=== PATIENT | male | born 1955 | race Caucasian/White ===

== ENCOUNTER → 2016-10-06 | Outpatient (CLI) | payer OTHER ==
[~2016-10-06] MED LIST: ALBUTEROL17 GM INH; ALLOPURINOL300 MG PO; AMOXICILLIN PO; CEFTIN PO; CLEOCIN PO; DIVALPROEX SOD500 M1 PO; IBUPROFEN800 MG PO; IMBRUVICA140 MG PO; MELOXICAM7.5 MG PO; NITROSTAT0.4 MG SL; PHENERGAN25 M1 PO; POTASSIUM CHLO10 ME2 PO; PRAVACHOL20 MG PO; PREDNISONE PO; PROAIR HFA8.5 GM INH; VICODIN 5/1 TAB 5/50 PO; VICODIN 5/500 T1 TAB PO; ZANAFLEX2 M1 PO
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
--- NOTE | ~2016-10-06 | MR31 ---
[facility] A Service of [facility] & [facility] RADIOLOGY TEXT RESULTS PATIENT: JOIE BEE LOCATION: [facility] : 54 UNIT #: [id number] AGE: [address]: Bud Uriarte MD SEX: M ORDER DR: [id number] [facility] [address] [place] [address] [place], [place] [address] [id number] P MR#: [id number] Acc #: [id number] NAME: JOIE BEE : 1955 SEX: M STUDY DATE/TIME: 10/06/2016 19:48 UNIT: [facility] ROOM: STUDY DESCRIPTION: MR Cervical WWo Contrast Attending Physician: Bud Uriarte M.D. Ordering Physician: Bud Uriarte M.D. Primary Care Physician: Bud Uriarte M.D. MRI CENTER REPORT This report is preliminary unless electronic signature is present. EXAM Cervical spine MRI without and with contrast, 10/06/2016. HISTORY Cervical pain and radiculopathy. Cervical radiculopathy into right arm. Constant pain. History of lymphocytic leukemia in 2014. Lumbar spine surgery in 2001. Chemotherapy 05/14 to 10/15 COMMENT MRI of the cervical spine was performed prior to and following intravenous administration of 16 mL of MultiHance. There is no prior imaging of the cervical spine. Sagittal alignment is normal. Bone marrow signal intensity is diffusely cellular, and I suspect this is related to patient's known myeloproliferative disorder. Please correlate further with clinical status of his lymphocytic leukemia. Please correlate for clinical evidence of anemia. Discrete osseous lesions are not identified. The intervertebral discs are mildly desiccated in general with mild loss of height at C5-C6 and C6-C7. The cervical cord is normal in size, and there is no reproducible cord signal abnormality. Following contrast administration, there is no pathologic cord enhancement. There is extensive lymphadenopathy in the neck and the visualized upper chest, likely due to known lymphocytic leukemia. Large left jugular chain node is about 2.8 cm in diameter, and the largest supraclavicular node on the right is 2.6 cm in diameter. At C2-C3, mild facet degenerative change bilaterally. No canal or foraminal impingement. At C3-C4, mild bilateral facet degenerative change. Mild broad-based STS. [facility] A Service of [facility] & [facility] RADIOLOGY TEXT RESULTS PATIENT: JOIE BEE LOCATION: [facility] : 54 UNIT #: [id number] AGE: [address]: Bud Uriarte MD SEX: M ORDER DR: posterior disc protrusion. Mild flattening of the anterior cord and very mild canal stenosis. No foraminal impingement. At C4-C5, there is mild facet degenerative change bilaterally. There is a tiny central disc protrusion. Annular fissure, mild flattening of the cord, and mild canal stenosis. Also mild left and cfux-ll-ceyyhllj right-sided foraminal narrowing. At C5-C6, there is a mild concentric disc bulge with superimposed right paramedian extrusion with the extruded disc material extending caudad from the disc level remaining contiguous with it and lying posterior to the upper half of C6. The extrusion measures about 1.3 cm SI dimension, 0.5 cm AP dimension, 0.80 cm ML dimension. There is gsjq-jv-rrbhvzec right-sided cord flattening and canal stenosis. There is uncovertebral osteophyte formation bilaterally with severe right greater than left side foraminal narrowing. At C6-C7, mild concentric disc bulge and endplate spondylosis and mild bilateral facet degenerative change. There is mild effacement of the anterior cord and very mild canal stenosis. Mild right and moderate left-side foraminal narrowing. At C7-T1, there is mild facet degenerative change on the left. No canal or foraminal impingement. IMPRESSION 1. This patient has extensive lymphadenopathy in the neck and visualized upper chest, probably a manifestation of known lymphocytic leukemia. Additionally marrow signal intensity is diffusely abnormal, probably related to myeloproliferative disorder, possibly related to associated anemia. Please correlate further clinically. 2. There is multilevel cervical degenerative change with the most significant finding radiographically likely at C5-C6, where there is a right paramedian extrusion with predominant right- sided cord flattening and canal stenosis. There is also severe foraminal narrowing at the C5-C6 level. Please refer to the sykkg-gt-nntro discussion of degenerative disease. Correlate with radicular symptoms. Cord signal intensity is still normal. There is no pathologic cord enhancement. Dictated by... Shani Tinoco M.D. THIS IS AN ELECTRONICALLY VERIFIED REPORT Shani Tinoco M.D. at 10/08/2016 11:12 AM MARION/heron TD: 10/07/2016 19:11 [facility]. [facility] A Service of [facility] RADIOLOGY TEXT RESULTS PATIENT: JOIE BEE [facility] UNIT #: [id number] AGE: [address]: Bud Uriarte MD SEX: M ORDER DR: RAAD #: [id number] MRI CENTER REPORT COPY
[2016-10-06 20:00] LABS: POC - CREATININE 1.17 mg/dL (0.64-1.27); POC - GFR >60.0 mL/min (>60)
== END | disposition home or self-care (01) ==
LOC: CMRI 11:31
PROVIDERS: Family Medicine
DX: M54.12 Radiculopathy, cervical region (principal); M54.16 Radiculopathy, lumbar region; R59.1 Generalized enlarged lymph nodes; M47.812 Spondylosis without myelopathy or radiculopathy, cervical region; M50.122 Cervical disc disorder at C5-C6 level with radiculopathy; M48.02 Spinal stenosis, cervical region; M51.16 Intervertebral disc disorders with radiculopathy, lumbar region; M48.06 Spinal stenosis, lumbar region
CPT/HCPCS: 72156; 72158; 82565; A9577

== ENCOUNTER → 2016-11-04 | Outpatient (CLI) | payer OTHER ==
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
== END | disposition home or self-care (01) ==
LOC: CMRI 09:45
DX: M54.14 Radiculopathy, thoracic region (principal); M51.14 Intervertebral disc disorders with radiculopathy, thoracic region; M47.24 Other spondylosis with radiculopathy, thoracic region; M48.04 Spinal stenosis, thoracic region; R59.0 Localized enlarged lymph nodes; Z85.6 Personal history of leukemia; Z98.890 Other specified postprocedural states
CPT/HCPCS: 72157; A9577

== ENCOUNTER 2016-12-19 21:45 | Emergency (ER) | payer OTHER ==
--- NOTE | ~2016-12-19 | CT99 ---
[facility] A Service of [facility] RADIOLOGY TEXT RESULTS PATIENT: JOIE BEE LOCATION: [facility] : 54 UNIT #: [id number] AGE: [address]: Yury Pearce MD SEX: M ORDER DR: [id number] [place] [id number] [facility] [place], [place] [address] [id number] MR#: [id number] Acc #: [id number] NAME: JOIE BEE : 1955 SEX: M STUDY DATE/TIME: 12/20/2016 0:21 UNIT: [facility] ROOM: STUDY DESCRIPTION: CT Maxillofacial Area W Cont Attending Physician: Yury Pearce M.D. Ordering Physician: Yury Pearce M.D. Primary Care Physician: Bud Uriarte M.D. MEDICAL IMAGING REPORT This report is preliminary unless electronic signature is present EXAM Facial CT examination with contrast 12/20/2016 HISTORY 61-year-old male in the ED complaining of 4 day history of left periorbital soft tissue swelling, redness and eye drainage. Fever. TECHNIQUE Facial CT examination was performed with IV contrast enhancement including the orbits, maxillofacial skull and mandible. Multiplanar reconstructed images. This CT exam was performed with one or more of the following radiation dose reduction techniques: automatic control, adjustment of mA and/or kV according to patient size, and iterative reconstruction. FINDINGS There was moderate enlargement of the left lacrimal gland within the anterolateral left orbit, the gland shows increased tissue enhancement. There was also extensive subcutaneous soft tissue swelling overlying the left orbit. The finding suggests likely acute inflammation or infection involving the left lacrimal gland. No abscess or other fluid collection is identified. The intraorbital soft tissues are otherwise normal in appearance. No extraocular muscle enlargement or abscess. Extensive mucosal thickening throughout the frontal, ethmoid, maxillary and sphenoid sinuses bilaterally. IMPRESSION 1. Moderate enlargement of the left lacrimal gland within the anterolateral left orbit which shows increased soft tissue enhancement. Extensive subcutaneous soft tissue swelling overlying [facility] A Service of [facility] RADIOLOGY TEXT RESULTS PATIENT: JOIE BEE LOCATION: [facility] : 54 UNIT #: [id number] AGE: [address]: Yury Pearce MD SEX: M ORDER DR: the left orbit. The findings suggest acute infection or inflammation involving the left lacrimal gland with preorbital cellulitis. No abscess or other fluid collection is seen within or adjacent to the left orbit. Left orbital contents are otherwise unremarkable. Lacrimal neoplasm is less likely, clinical follow-up is recommended. 2. Extensive mucosal thickening throughout the paranasal sinuses bilaterally. Dictated by... Jamil Aguilar M.D. THIS IS AN ELECTRONICALLY VERIFIED REPORT Jamil Aguilar M.D. at 12/20/2016 9:51 PM SARMAD/marcus TD: 12/20/2016 01:22 JOB #: [id number] MEDICAL IMAGING REPORT Page 1 of 1 COPY
[2016-12-19 21:41] LABS: BASOPHIL# 0.1 X10e3 (0-0.3); BASOPHIL% 0.1 % (0-2.5); EOSINOPHIL# 0.1 X10e3 (0-0.7); EOSINOPHIL% 0.1 % (0.0-7.0); HEMATOCRIT 41.6 % (38.0-50.0); HEMOGLOBIN 13.7 gm/dL (13.0-16.0); LYMPHOCYTE# 59.9 X10e3 (1.0-3.5); LYMPHOCYTE% 89.3 % (17.0-45.0); MEAN CELL VOLUME 92.9 FL (83-96); MEAN CORPUSCULAR HEMOGLOBIN 30.6 PG (28-34); MEAN CORPUSCULAR HGB CONC 32.9 g/dL (30-36); MEAN PLATELET VOLUME 8.8 FL (6.5-11.5); MONOCYTE# 2.2 X10e3 (0-1.0); MONOCYTE% 3.3 % (3.0-12.0); NEUTROPHIL# 4.9 X10e3 (1.5-7.1); NEUTROPHIL% 7.2 % (40-75); RED BLOOD COUNT 4.48 X10e (3.90-5.60); RED CELL DISTRIBUTION WIDTH 15.1 % (11.0-15.5)
[~2016-12-19 21:45] MED LIST changes: -ALBUTEROL17 GM INH; -ALLOPURINOL300 MG PO; -CEFTIN PO; -DIVALPROEX SOD500 M1 PO; -IMBRUVICA140 MG PO; -MELOXICAM7.5 MG PO; -PHENERGAN25 M1 PO; -POTASSIUM CHLO10 ME2 PO; -PRAVACHOL20 MG PO; -PREDNISONE PO; -PROAIR HFA8.5 GM INH; -ZANAFLEX2 M1 PO
[2016-12-19 21:56] LABS: DIFF IND YES; PLATELET COUNT 83 X10e3 (140-420); WHITE BLOOD COUNT 67.1 X10e3 (4.0-10.5)
[2016-12-19 22:00] LABS: PLATELET ESTIMATE DECREASED (NORMAL)
[2016-12-19 22:02] LABS: ANISOCYTOSIS MOD; DIFFERENTIAL COMMENT MOD.ATY.LYMPS
[2016-12-19 22:44] LABS: BILIRUBIN,TOTAL 0.8 mg/dL (0.2-2.0); CALCIUM SERUM 8.8 mg/dL (8.4-10.2); CREATININE SERUM 1.1 mg/dL (0.6-1.4); GLOM FILT RATE Estimated 71.6 mL/min (>60); POTASSIUM 4.4 mmol/L (3.5-5.1); PROTEIN TOTAL SERUM 6.8 g/dL (6.0-8.3)
[2016-12-19] MEDS ORDERED: MELOXICAM7.5 MG PO (23:37)
[2016-12-19] MEDS ORDERED: ALLOPURINOL300 MG PO (23:38)
[2016-12-19] MEDS ORDERED: DIVALPROEX SOD500 M1 PO (23:38)
[2016-12-19] MEDS ORDERED: POTASSIUM CHLO10 ME2 PO (23:38)
[2016-12-19] MEDS ORDERED: PRAVACHOL20 MG PO (23:38)
[2016-12-19] MEDS ORDERED: ZANAFLEX2 M1 PO (23:40)
[2016-12-19] MEDS ORDERED: IMBRUVICA140 MG PO (23:41)
[2016-12-19] MEDS ORDERED: PHENERGAN25 M1 PO (23:41)
== END 2016-12-20 02:30 | disposition home or self-care (01) ==
LOC: CED 21:45
PROVIDERS: Emergency Medicine
DX: L03.213 Periorbital cellulitis (principal); Z79.899 Other long term (current) drug therapy
CPT/HCPCS: 36415; 70487; 80053; 85025; 87040; 96365; 96375; 99284; J0696; J2270; J2405; J3370; Q9967

== ENCOUNTER → 2017-01-04 | Outpatient (CLI) | payer OTHER ==
[~2017-01-04] MED LIST changes: +ALBUTEROL17 GM INH; +ALLOPURINOL300 MG PO; +CEFTIN PO; +DIVALPROEX SOD500 M1 PO; +IMBRUVICA140 MG PO; +MELOXICAM7.5 MG PO; +PHENERGAN25 M1 PO; +POTASSIUM CHLO10 ME2 PO; +PRAVACHOL20 MG PO; +PREDNISONE PO; +PROAIR HFA8.5 GM INH; +ZANAFLEX2 M1 PO
--- NOTE | ~2017-01-04 | CT2 ---
[facility] A Service of [facility] & [facility] RADIOLOGY TEXT RESULTS PATIENT: JOIE BEE [facility] UNIT #: [id number] AGE: [address]: Ortiz Contreras MD SEX: M ORDER DR: [id number] [place] [id number] [facility] [place], [place] [address] [id number] O MR#: [id number] Acc #: [id number] NAME: JOIE BEE : 1955 SEX: M STUDY DATE/TIME: 01/04/2017 14:20 [facility] ROOM: STUDY DESCRIPTION: CT Abd and Pelv W Cont Attending Physician: Ortiz Contreras M.D. Referring Physician: Ortiz Contreras M.D. Ordering Physician: Ortiz Contreras M.D. Primary Care Physician: Bud Uriarte M.D. MEDICAL IMAGING REPORT This report is preliminary unless electronic signature is present EXAM CT abdomen and pelvis with contrast INDICATIONS Lymphadenopathy and leukocytosis diagnosed 2 years ago. Leukemia. Restaging. Observation for disease progression. PROCEDURE Contrast-enhanced CT of the abdomen and pelvis. 100 mL of Isovue-370. This CT exam was performed with one or more of the following radiation dose reduction techniques: Automatic exposure control, adjustment of mA and/or kV according to patient size, and iterative reconstruction. COMPARISON None FINDINGS Refer to the separately dictated chest CT for thoracic findings. ABDOMEN WITH CONTRAST: Cirrhotic morphology of the liver. No liver mass on this single-phase study. The spleen measures 16.9 cm in length. No significant ascites. There is a 3.1-cm cyst in the upper pole of the right kidney. The adrenal glands, pancreas, gallbladder unremarkable. Bowel loops are nondilated. There is diffuse abdominal adenopathy. Index portacaval node measures up to 4.3 cm. A mesenteric jai conglomerate measures approximately 9.3 x 6.1 cm and a right paraaortic conglomerate measures 4.7 x 4.1 cm. PELVIS WITH CONTRAST: Right external iliac node measures up to 2.6 cm. No pelvic fluid. No aggressive appearing bone lesion. [facility] A Service of [facility] & [facility] RADIOLOGY TEXT RESULTS PATIENT: JOIE BEE LOCATION: [facility] : 54 UNIT #: [id number] AGE: [address]: Ortiz Contreras MD SEX: M ORDER DR: IMPRESSION 1. Diffuse lymphadenopathy, greater in the abdomen than the pelvis. 2. Cirrhosis. Splenomegaly. No liver mass seen on this single-phase study. 3. Refer to the separately dictated chest CT for thoracic findings. Dictated by... Jon Jiménez M.D. THIS IS AN ELECTRONICALLY VERIFIED REPORT Jon Jiménez M.D. at 01/07/2017 7:04 AM RONEY/yissel TD: 01/04/2017 17:17 JOB #: [id number] MEDICAL IMAGING REPORT Page 1 of 1 COPY
--- NOTE | ~2017-01-04 | CT55 ---
[facility] A Service of [facility] RADIOLOGY TEXT RESULTS PATIENT: JOIE BEE LOCATION: [facility] : 53 UNIT #: [id number] AGE: [address]: Ortiz Contreras MD SEX: M ORDER DR: [id number] [id number] [place], [place] [address] [id number] O MR#: [id number] Acc #: [id number] NAME: JOIE BEE. : 1955 SEX: M STUDY DATE/TIME: 01/04/2017 14:20 UNIT: [facility] ROOM: STUDY DESCRIPTION: CT Chest W Con Attending Physician: Ortiz Contreras M.D. Referring Physician: Ortiz Contreras M.D. Ordering Physician: Ortiz Contreras M.D. Primary Care Physician: Bud Uriarte M.D. MEDICAL IMAGING REPORT This report is preliminary unless electronic signature is present EXAM CT chest with contrast. INDICATION Lymphadenopathy. Leukocytosis. Leukemia diagnosed 2 years ago. Observation for disease progression. Patient reports cough for the past 6 months. PROCEDURE Contrast-enhanced CT of the chest. 100 mL of Isovue-370. This CT exam was performed with one or more of the following radiation dose reduction techniques: automatic exposure control, adjustment of mA and/or kV according to patient size, and iterative reconstruction. COMPARISON STUDIES None FINDINGS No suspicious pulmonary nodule. There is diffuse mediastinal adenopathy. A right paratracheal node conglomerate measures up to 4.1 cm. A right lower paraesophageal node measures up 2.4 cm. No aggressive appearing bone lesion. IMPRESSION 1. Diffuse mediastinal adenopathy with index measurements above. 2. No acute findings. Dictated by... Jon Jiménez M.D. [facility] A Service of [facility] & [facility] RADIOLOGY TEXT RESULTS PATIENT: JOIE BEE LOCATION: [facility] : 53 UNIT #: [id number] AGE: [address]: Ortiz Contreras MD SEX: M ORDER DR: THIS IS AN ELECTRONICALLY VERIFIED REPORT Jon Jiménez M.D. at 01/07/2017 7:04 AM RONEY/anna TD: 01/04/2017 17:20 JOB #: [id number] MEDICAL IMAGING REPORT Page 1 of 1 COPY
== END | disposition home or self-care (01) ==
LOC: CCAT 13:16
DX: C91.10 Chronic lymphocytic leukemia of B-cell type not having achieved remission (principal); R59.1 Generalized enlarged lymph nodes; D72.828 Other elevated white blood cell count; D75.1 Secondary polycythemia; K74.60 Unspecified cirrhosis of liver; R16.1 Splenomegaly, not elsewhere classified
CPT/HCPCS: 71260; 74177; J1642; Q9967

== ENCOUNTER 2017-03-01 13:45 | Inpatient (IN) | payer OTHER ==
--- NOTE | ~2017-03-01 | EKG ---
PATIENT: JOIE BEE UNIT #: [id number] Ventricular Rate: 111 BPM Atrial Rate: 111 BPM P-R Interval: 132 ms QRS Duration: 92 ms Q-T Interval: 310 ms QTC Calculation(Bezet): 421 ms P Barnhill: -12 degrees Calculated R Barnhill: -50 degrees Calculated T Barnhill: 36 degrees Diagnosis Line: Sinus tachycardia with occasional Premature Diagnosis Line: ventricular complexes Diagnosis Line: Incomplete right bundle branch block Diagnosis Line: Left anterior fascicular block Diagnosis Line: Abnormal ECG Diagnosis Line: When compared with ECG of 21-FEB-2016 05:11, Diagnosis Line: Premature ventricular complexes are now Present Diagnosis Line: T wave amplitude has increased in Lateral leads Diagnosis Line: Confirmed by KENDRICK RODRIGUEZ MD ([id number]) on 03/02/2017 Diagnosis Line: 3:28:26 PM INTERPRETING MD: MICHAEL DAWSON
--- NOTE | ~2017-03-01 | CR72 ---
[facility] A Service of [facility] RADIOLOGY TEXT RESULTS PATIENT: JOIE BEE LOCATION: [facility] 316- : 54 UNIT #: [id number] AGE: [address]: Regulo Jolly MD SEX: M ORDER DR: [id number] [facility] [address] [facility] [address]. [place], [place] [address] [id number] I MR#: [id number] Acc #: [id number] NAME: JOIE BEE : 1955 SEX: M STUDY DATE/TIME: 03/02/2017 7:50 UNIT: [address] ROOM: [facility] STUDY DESCRIPTION: CR Chest Single View Portable Attending Physician: Regulo Jolly M.D. Ordering Physician: Regulo Jolly M.D. Primary Care Physician: Bud Uriarte M.D. MEDICAL IMAGING REPORT This report is preliminary unless electronic signature is present EXAM Portable chest. HISTORY Chest pain, shortness of air x1 day. COMPARISON 03/01/2017 FINDINGS Portable view of the chest demonstrates continued right basilar volume loss and parenchymal opacity which may represent a combination of atelectasis, infiltrate or possibly small right effusion. The left lung remains clear. Indwelling venous access port overlies the right chest, distal tip near the lower SVC. Mild cardiomegaly and aortic atherosclerotic change. No pneumothorax. Dictated by... Jean Hdz M.D. THIS IS AN ELECTRONICALLY VERIFIED REPORT Jean Hdz M.D. at 03/03/2017 12:29 PM Jyotsna TD: 03/02/2017 22:17 JOB #: [id number] MEDICAL IMAGING REPORT Page 1 of 1 COPY
--- NOTE | ~2017-03-01 | DS ---
Unit #: [id number] #: [id number] Patient: JOIE BEE [id number] [address] [address] [id number] I MR#: [id number] NAME: JOIE BEE ROOM: 316 Age: 61 Sex: M Admission Date: 03/01/2017 : 1955 Discharge Date: 03/04/2017 Attending Physician: Regulo Jolly M.D. Primary Care Physician: Bud Uriarte M.D. DISCHARGE SUMMARY DISCHARGE DIAGNOSES 1. Pneumococcal pneumonia with bacteremia. 2. Tobacco use, suspect underlying COPD. 3. Chronic lymphocytic leukemia. 4. Hypokalemia, replaced. 5. Hypophosphatemia, replaced. 6. Scant hemoptysis, most likely secondary to pneumonia. DISCHARGE MEDICATIONS 1. Ceftin 500 mg b.i.d. for 5 more days. 2. Prednisone 40 mg a day for 5 days. 3. ProAir 2 puffs q.i.d. p.r.n. 4. Imbruvica 140 mg tablets a day or as per Dr. Contreras. FOLLOW-UP 1. Follow up in our office in 2 weeks with our nurse practitioner; arrange PFTs. 2. Follow up with Dr. Jolly in 6-8 weeks with chest x-ray in the office. 3. Follow up with Dr. Contreras for CLL as scheduled. 4. Follow up with Dr. Uriarte in 2 weeks for general medical care. DISCHARGE DIET As tolerated. ACTIVITIES No specific restrictions, although no smoking has been suggested. DESCRIPTION OF HOSPITALIZATION The patient was admitted through the emergency room with fever, mucopurulent sputum and scant hemoptysis. He had a CT scan PE protocol with no PE but had evidence of right lower lobe pneumonia. He did have evidence of adenopathy, both on his CT scan chest and abdomen, likely related to his CLL. He had significant pleuritic pain, which was unresponsive initially to narcotics. He actually improved dramatically with 2 doses of Toradol and steroids. He had no further hemoptysis. He improved daily. On the day of discharge he was asking for discharge. He was ambulating in the linda without oxygen. He will be given an albuterol inhaler, but at this time we will hold off on chronic daily controlling medications. He will be seen in the office and get PFTs, and we will consider addition of controlling agents if needed. Certainly, no smoking is of great benefit, and this has been discussed. We will consider repeat CAT scan in 8-10 weeks to make sure that this area resolves, particularly given his hemoptysis. Certainly, if he has any further hemoptysis, he will need bronchoscopy. Unit #: [id number] #: [id number] Patient: JOIE BEE Dictated by... Gary Shin/sandra TD: 03/04/2017 12:30 JOB #: [id number] DISCHARGE SUMMARY Page 1 of 1 X Regulo Jolly MD X DISCHARGE SUMMARY
--- NOTE | ~2017-03-01 | CT16 ---
[facility] A Service of [facility] RADIOLOGY TEXT RESULTS PATIENT: JOIE BEE LOCATION: [facility] 316-01 : 54 UNIT #: [id number] AGE: [address]: Regulo Jolly MD SEX: M ORDER DR: [id number] [facility] [address]. [place], [place] [address] [id number] I MR#: [id number] #: [id number] NAME: JOIE BEE : 1955 SEX: M STUDY DATE/TIME: 03/01/2017 15:25 UNIT: [facility] ROOM: [facility] STUDY DESCRIPTION: CT Angio Chest for PE Attending Physician: Regulo Jolly M.D. Ordering Physician: Trent Plascencia M.D. Primary Care Physician: Bud Uriarte M.D. MEDICAL IMAGING REPORT This report is preliminary unless electronic signature is present EXAM CT angiogram chest. INDICATIONS Chest pain for 2 hours. This is located on the right. Patient also has had some right-sided abdominal pain. TECHNIQUE Axial CT images were obtained from the thoracic inlet through the dome of the diaphragm following administration of intravenous contrast material. Following this 3-D reformatted images were obtained. Patient does have a history of mediastinal adenopathy. This CT exam was performed with one or more of the following radiation dose reduction techniques: automatic exposure control, adjustment of mA and/or kV according to patient size, and iterative reconstruction. FINDINGS This patient has dense consolidation identified within the right lower lobe. Its appearance is most in keeping with pneumonia. It is new when compared to the exam from January 04, 2017. No acute pulmonary thromboembolus is seen. Thoracic aorta measures within normal size limits. There is no evidence of dissection. This patient does have extensive mediastinal and hilar adenopathy which I think has worsened when compared to the prior study. Upper right paratracheal node now measures up to 1.9 cm in short-axis dimensions previously measured 1.1 cm, lower right paratracheal node measures about 4 cm. This is unchanged when compared to prior examination, but a right hilar node now measures up to 2.5 x 1.9 cm, previously 2.0 x 1.9 cm. There is also periaortic adenopathy and additional enlarged nodes within the anterior mediastinum. Patient's CT of the abdomen and pelvis will be dictated separately. Patient does have cirrhosis and evidence of portal hypertension and there is splenomegaly. Patient is noted to have left basilar atelectasis. The thyroid gland, [facility] A Service of [facility] RADIOLOGY TEXT RESULTS PATIENT: JOIE BEE LOCATION: [facility] 316-01 : 53 UNIT #: [id number] AGE: [address]: Regulo Jolly MD SEX: M ORDER DR: trachea and esophagus appear unremarkable. Patient has a right internal jugular vein MediPort which extends into the right atrium. No aggressive osseous abnormalities are seen. IMPRESSION 1. Dense infiltrate is seen within the right lower lobe favored to represent pneumonia. There is probably also, a trace pleural fluid in this area as well. 2. No acute pulmonary thromboembolus seen. Thoracic aorta is normal in caliber and no dissection. 3. Extensive mediastinal and hilar adenopathy which I think is actually progressed when compared to the exam from December of this year. Correlation with this patient's history is recommended. Please see the body of the report for any other additional incidental findings and please refer to the separately dictated report for findings within the abdomen and pelvis. Dictated by... Alondra Mckinney M.D. THIS IS AN ELECTRONICALLY VERIFIED REPORT Alondra Mckinney M.D. at 03/04/2017 8:10 AM SANTIAGO/yordan TD: 03/02/2017 09:33 JOB #: [id number] MEDICAL IMAGING REPORT Page 1 of 1 COPY
--- NOTE | ~2017-03-01 | HP ---
Unit #: [id number] #: [id number] Patient: JOIE BEE [id number] [address] [place], [place] [address] [id number] I MR#: [id number] NAME: JOIE BEE ROOM: [facility] Age: 61 Sex: M Admission Date: 03/01/2017 : 1955 Attending Physician: Regulo Jolly M.D. Primary Care Physician: Bud Uriarte M.D. HISTORY AND PHYSICAL CHIEF COMPLAINT Pain. HISTORY OF PRESENT ILLNESS A 61-year-old gentleman with CLL followed by Dr. Contreras, currently on Imbruvica. He has had a one and a half to two day history of fever, mucopurulent sputum, scant hemoptysis and fairly severe pleuritic pain. It is on the right side. In the emergency room, he received a variety of scans including a CT PE protocol which was negative for PE. His abdominal CT was unremarkable for acute pathology. There was scattered adenopathy consistent with his diagnosis of CLL. He is in the intensive care unit. He had a borderline low blood pressure. Sepsis protocol was initiated and criteria was fulfilled. He is hungry, asking for food. He is awake and alert, in no distress on low flow oxygen. His major complaint is just pleuritic pain. PAST MEDICAL HISTORY Remarkable for his CLL. He denies lung disease, diabetes, hypertension or heart disease. When I asked him if he ever had a heart attack, he said yes. He had a cardiac catheterization in the past which was negative and he is not followed by a relationship management lead. SOCIAL HISTORY He does smoke he states a pack a week. He does not drink alcohol. He denies recreational drug use but the nursing staff tells me that there is some history of drug use and that he may have been found with drug paraphernalia but that cannot be confirmed. FAMILY HISTORY No familial lung disease. ALLERGIES No known medical allergies. MEDICATIONS AT HOME Only this Imbruvica. He was on no other medications. REVIEW OF SYSTEMS He denies palpitations, anginal chest pain, melena, hematochezia, hematuria, dysuria, nausea, vomiting, leg pain, swelling, focal weakness, paraesthesias. He did have fever. He said it was around 102. He has had no further hemoptysis. Unit #: [id number] #: [id number] Patient: JOIE BEE PHYSICAL EXAMINATION VITAL SIGNS: Reveals a gentleman who had a T-Max of 101.2. He now is afebrile. Pulse 55. Respiratory rate 16. Blood pressure 91/58. Height 5'8". Weight 145 lb. HEENT: Pupils equal, round and reactive to light. Sclerae anicteric. Head: Atraumatic. Mucous membranes were moist. He has a few natural teeth. They are in very poor dentition. NECK: Supple. No supraclavicular or cervical adenopathy appreciated. CHEST: Egophony right lower lobe. Decreased breath sounds. No wheeze or stridor. Some scattered rhonchi. CARDIAC: Distant heart tones. Regular rate and rhythm. No pathologic murmur, rub or gallop. ABDOMEN: Soft, nontender. No hepatomegaly or rebound. EXTREMITIES: No clubbing, cyanosis or edema. No calf tenderness. SKIN: Warm and dry without rash or diaphoresis. NEUROLOGIC: Grossly intact. No focal muscle or sensory deficits. DIAGNOSTIC STUDIES LABORATORY: BUN 19, creatinine 0.9, potassium 3.0. Lactic acid 2.2, repeat 2.2. INR normal. Cardiac enzymes normal. WBC count 121,000, now 70,000. Hemoglobin 9.4, platelet count 108. Urinalysis: Hematuria. Blood cultures, both sets, growing gram-positive cocci in pairs and chains. IMAGING: Chest x-ray right lower lobe infiltrate. He now has a little bit of effusion on that side but very small. CT: No PE and pneumonia. CT of his abdomen: Formal report is pending but apparently no acute changes and lymphadenopathy was somewhat better. CARDIOVASCULAR: EKG shows no definite acute ischemic changes. IMPRESSION 1. Septic shock with a low blood pressure of 88 and received appropriate IV fluids, antibiotics and has met sepsis criteria and protocol. 2. Pneumonia, community acquired, however, in immunosuppressed individual. 3. CLL. 4. Pleuritic pain secondary to pneumonia. 5. Scant hemoptysis secondary to pneumonia. 6. Tobacco. 7. Vague history of possible DE in the past. PLAN IV antibiotics, obviously adjust as cultures become positive, pain control, steroids for severe pneumonia, nebulized bronchodilators. We will hold off on his chemotherapy until his thrombocytopenia and pneumonia are better. His potassium will be replaced. Urine tox screen will be performed. If stable, can likely move out of the ICU later today. Dictated by Gary Shin TD: 03/02/2017 09:21 JOB #: [id number] Unit #: [id number] #: [id number] Patient: VALERIELACHOJOIE L HISTORY AND PHYSICAL Page 1 of 1 X Regulo Jolly MD HISTORY AND PHYSICAL
--- NOTE | ~2017-03-01 | CT2 ---
[facility] A Service of [facility] RADIOLOGY TEXT RESULTS PATIENT: JOIE BEE LOCATION: [facility] 316-01 : 54 UNIT #: [id number] AGE: [address]: Regulo Jolly MD SEX: M ORDER DR: [id number] [facility] [address] [facility]. [place], [place] [address] [id number] I MR#: [id number] Acc #: [id number] NAME: JOIE BEE : 1955 SEX: M STUDY DATE/TIME: 03/01/2017 15:25 UNIT: [facility] ROOM: [facility] STUDY DESCRIPTION: CT Abd and Pelv W Cont Attending Physician: Regulo Jolly M.D. Ordering Physician: Trent Plascencia M.D. Primary Care Physician: Bud Uriarte M.D. MEDICAL IMAGING REPORT This report is preliminary unless electronic signature is present EXAM CT abdomen and pelvis with IV contrast. HISTORY Right-side abdomen pain today and chest pain. TECHNIQUE CT abdomen and pelvis was performed with IV contrast. This CT exam was performed with one or more of the following radiation dose reduction techniques: automatic exposure control, adjustment of mA and/or kV according to patient size, and iterative reconstruction. FINDINGS CT ABDOMEN: Dense consolidation or atelectasis in the posterior right lung base into the lower lobe. Morphologic changes of cirrhosis with nodular hepatic contour, and splenomegaly measuring 17.3 cm in length. No hepatic mass. No biliary ductal dilatation. The pancreas, left kidney, and adrenal glands are normal. 3.2 cm cyst in the upper pole of the right kidney. Left periaortic adenopathy superior to the left renal hilum measures 4.4 cm x 2.1 cm, previously 4.7 cm x 2.2 cm. Portocaval adenopathy measures 3.9 cm x 1.9 cm, previously 4.3 cm x 2.5 cm. Addi mass in the right mid abdominal mesentery measures 2.9 cm x 7.5 cm, previously 6.1 cm x 9.3 cm. Additional peripancreatic, left periaortic, and aortocaval adenopathy has decreased slightly since the prior CT as well. Mild ectasia of the infrarenal abdominal aorta measures 2.7 cm in AP dimension. No bowel dilatation. No urinary obstruction. CT PELVIS: No pelvic mass or fluid collection. Mild right common femoral adenopathy measures 1.5 cm. This is similar to the prior CT. Small right inguinal hernia containing fat. No free fluid. No bowel dilatation. IMPRESSION [facility]. [facility] A Service of [facility] RADIOLOGY TEXT RESULTS PATIENT: JOIE BEE LOCATION: [facility] 316-01 : 54 UNIT #: [id number] AGE: [address]: Regulo Jolly MD SEX: M ORDER DR: 1. Slight interval decrease in size of moderate multifocal abdominal lymphadenopathy as compared to 01/04/2017. By history, patient reportedly has been treated for leukemia and the adenopathy is compatible with residual leukemia. 2. Mild adenopathy along the right common femoral chain is stable compared to the prior study. 3. No acute findings in the abdomen or pelvis. 4. Cirrhosis with moderate splenomegaly is stable compared to the prior exam. 5. Extensive atelectasis or consolidation in the posterior right lung base in the right lower lobe. This is new since the prior CT. Dictated by... Nicholas Hamilton M.D. THIS IS AN ELECTRONICALLY VERIFIED REPORT Nicholas Hamilton M.D. at 03/02/2017 10:54 PM MELY/anna TD: 03/02/2017 09:45 JOB #: [id number] MEDICAL IMAGING REPORT Page 1 of 1 COPY
--- NOTE | ~2017-03-01 | CR72 ---
[facility] A Service of [facility] & [facility] RADIOLOGY TEXT RESULTS PATIENT: JOIE BEE LOCATION: [facility] 316-01 : 54 UNIT #: [id number] AGE: [address]: Regulo Jolly MD SEX: M ORDER DR: [id number] [facility] [address] [facility]. [place], [place] [address] [id number] I MR#: [id number] Acc #: [id number] NAME: JOIE BEE : 1955 SEX: M STUDY DATE/TIME: 03/01/2017 14:29 UNIT: [facility] ROOM: [facility] STUDY DESCRIPTION: CR Chest Single View Portable Attending Physician: Regulo Jolly M.D. Ordering Physician: Trent Plascencia M.D. Primary Care Physician: Bud Uriarte M.D. MEDICAL IMAGING REPORT This report is preliminary unless electronic signature is present EXAM Portable chest x-ray 03/01/2017 HISTORY Chest pain. Prior history of leukemia and smoking. Prior port placement. Short of air today. TECHNIQUE/COMPARISON AP radiograph of the chest presented with comparison to CT examination 01/04/2017 FINDINGS Right sided chest port is unchanged. The heart is upper limits of normal in size. Abnormal soft tissue prominence right paratracheal region felt to reflect ongoing adenopathy in this area as seen on prior CT examination. There is soft tissue prominence in the right hilar region also favored to represent adenopathy. 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 This could best be further evaluated with CT examination if it would assist in management at this time. The lung volumes are low and there are patchy and linear densities at the bilateral lung bases more pronounced on the right than the left. Small right pleural effusion. Some component of the basilar densities likely atelectatic in nature. A component of right basilar pneumonia could be considered. Followup to radiographic resolution is recommended. There is no pneumothorax. Dictated by... Ant Cope M.D. THIS IS AN ELECTRONICALLY VERIFIED REPORT Ant Cope M.D. at 03/03/2017 11:34 AM [facility] A Service of [facility] RADIOLOGY TEXT RESULTS PATIENT: JOIE BEE LOCATION: [facility] 316-01 : 53 UNIT #: [id number] AGE: [address]: Regulo Jolly MD SEX: M ORDER DR: GREG/joceline TD: 03/02/2017 07:33 JOB #: [id number] MEDICAL IMAGING REPORT Page 1 of 1 COPY
--- NOTE | ~2017-03-01 | CR72 ---
[facility] A Service of [facility] RADIOLOGY TEXT RESULTS PATIENT: JOIE BEE LOCATION: [facility] 316-01 : 53 UNIT #: [id number] AGE: [address]: Regulo Jolly MD SEX: M ORDER DR: [id number] [facility] [address] [facility]. [place], [place] [address] [id number] I MR#: [id number] Acc #: [id number] NAME: JOIE BEE : 1955 SEX: M STUDY DATE/TIME: 03/03/2017 4:15 UNIT: [address] ROOM: [facility] STUDY DESCRIPTION: CR Chest Single View Portable Attending Physician: Regulo Jolly M.D. Ordering Physician: Regulo Jolly M.D. Primary Care Physician: Bud Uriarte M.D. MEDICAL IMAGING REPORT This report is preliminary unless electronic signature is present EXAM Single view chest INDICATIONS Pleuritic chest pain. Hypertension. Pneumonia. COMPARISON Single portable AP view of the chest compared to 03/02/2017. FINDINGS The heart and mediastinal contours are unchanged. There is a right pleural effusion with associated right lower lobe airspace opacity. No pneumothorax. IMPRESSION No interval change. Dictated by... Gary Fuchs M.D. THIS IS AN ELECTRONICALLY VERIFIED REPORT Gary Fuchs M.D. at 03/03/2017 11:40 PM ABIMAEL/heron TD: 03/03/2017 11:50 JOB #: [id number] MEDICAL IMAGING REPORT Page 1 of 1 COPY
[~2017-03-01 13:45] MED LIST changes: -ALBUTEROL17 GM INH; -CEFTIN PO; -PREDNISONE PO; -PROAIR HFA8.5 GM INH
[2017-03-01 14:38] LABS: INR 1.3; PARTIAL THROMBOPLASTIN TIME 39.1 SECONDS (23.5-31.3); PROTHROMBIN TIME (PATIENT) 13.8 SECONDS (10.0-11.7)
[2017-03-01 14:42] LABS: HEMATOCRIT 37.9 % (38.0-50.0); HEMOGLOBIN 11.4 gm/dL (13.0-16.0); LYMPHOCYTE# 89.6 X10e3 (1.0-3.5); LYMPHOCYTE% 73.8 % (17.0-45.0); MEAN CELL VOLUME 92.4 FL (83-96); MEAN CORPUSCULAR HEMOGLOBIN 27.9 PG (28-34); MEAN CORPUSCULAR HGB CONC 30.2 g/dL (30-36); MEAN PLATELET VOLUME 9.6 FL (6.5-11.5); MONOCYTE# 3.6 X10e3 (0-1.0); MONOCYTE% 2.9 % (3.0-12.0); NEUTROPHIL# 28.4 X10e3 (1.5-7.1); NEUTROPHIL% 23.3 % (40-75); PLATELET COUNT 164 X10e3 (140-420); RED CELL DISTRIBUTION WIDTH 15.4 % (11.0-15.5)
[2017-03-01 14:51] LABS: ALBUMIN SERUM 3.2 g/dL (3.5-5.0); BILIRUBIN, DIRECT 0.5 mg/dL (0.0-0.2); BILIRUBIN,INDIRECT 1.1 mg/dL (0.0-0.9); BILIRUBIN,TOTAL 1.6 mg/dL (0.2-2.0); CALCIUM SERUM 8.4 mg/dL (8.4-10.2); CREATININE SERUM 1.4 mg/dL (0.6-1.4); GLOM FILT RATE Estimated 53.5 mL/min (>60); POTASSIUM 3.5 mmol/L (3.5-5.1); PROTEIN TOTAL SERUM 6.6 g/dL (6.0-8.3)
[2017-03-01 15:02] LABS: WHITE BLOOD COUNT 121.5 X10e3 (4.0-10.5)
[2017-03-01 15:03] LABS: DIFF IND YES
[2017-03-01 15:16] LABS: ANISOCYTOSIS SL; NUCLEATED RED BLOOD CELL 0 /100 (0); PLATELET ESTIMATE NORMAL (NORMAL)
[2017-03-01 15:17] LABS: REACTIVE LYMPHS PRESENT; SMUDGE CELLS 5 /100
[2017-03-01] MEDS ORDERED: IMBRUVICA140 MG PO (15:24)
[2017-03-01 15:39] LABS: URINE SOURCE CLEAN CATCH
[2017-03-01 15:55] LABS: URINE APPEARANCE CLEAR; URINE BLOOD NEG (NEG); URINE COLOR DK YELLOW; URINE GLUCOSE NEG (NEG); URINE KETONE NEG (NEG); URINE LEUKOCYTE ESTERASE TRACE (NEG); URINE NITRATE NEG (NEG); URINE PROTEIN 1+ (NEG); URINE UROBILINOGEN >8.0 MG/DL (NEG)
[2017-03-01 16:00] LABS: URINE BACTERIA AUWI NEG (NEGATIVE); URINE SQUAMOUS EPITHELIAL CELL NONE SEEN /[HPF]; UWBCS1 AUWI 0-2 (0-5)
[2017-03-01 16:05] LABS: CULTURE INDICATED? NO; URINE BILIRUBIN NEG (NEG)
[2017-03-01 16:09] LABS: POC - CKMB <1.0 ng/mL (0.0-7.9); POC - TROPONIN <0.05 ng/mL (<=0.05)
[2017-03-02 04:11] LABS: MEAN CELL VOLUME 92.5 FL (83-96); MEAN CORPUSCULAR HEMOGLOBIN 28.1 PG (28-34); MEAN CORPUSCULAR HGB CONC 30.4 g/dL (30-36); MEAN PLATELET VOLUME 8.9 FL (6.5-11.5); RED BLOOD COUNT 3.35 X10e (3.90-5.60); RED CELL DISTRIBUTION WIDTH 15.6 % (11.0-15.5)
[2017-03-02 04:15] LABS: HEMOGLOBIN 9.4 gm/dL (13.0-16.0); WHITE BLOOD COUNT 70.3 X10e3 (4.0-10.5)
[2017-03-02 04:31] LABS: ALBUMIN SERUM 2.2 g/dL (3.5-5.0); BILIRUBIN,TOTAL 0.5 mg/dL (0.2-2.0); BUN/CREATININE RATIO 21.11; CALCIUM SERUM 7.7 mg/dL (8.4-10.2); CREATININE SERUM 0.9 mg/dL (0.6-1.4); GLOM FILT RATE Estimated 91.2 mL/min (>60)
[2017-03-03 06:05] LABS: HEMATOCRIT 32.3 % (38.0-50.0); HEMOGLOBIN 9.7 gm/dL (13.0-16.0); LYMPHOCYTE% 75.9 % (17.0-45.0); MEAN CELL VOLUME 93.8 FL (83-96); MEAN CORPUSCULAR HEMOGLOBIN 28.3 PG (28-34); MEAN CORPUSCULAR HGB CONC 30.2 g/dL (30-36); MEAN PLATELET VOLUME 10.2 FL (6.5-11.5); MONOCYTE# 1.3 X10e3 (0-1.0); MONOCYTE% 1.6 % (3.0-12.0); NEUTROPHIL# 18.4 X10e3 (1.5-7.1); NEUTROPHIL% 22.5 % (40-75); PLATELET COUNT 118 X10e3 (140-420); RED BLOOD COUNT 3.44 X10e (3.90-5.60); RED CELL DISTRIBUTION WIDTH 15.4 % (11.0-15.5)
[2017-03-03 06:17] LABS: DIFF IND NO; WHITE BLOOD COUNT 81.8 X10e3 (4.0-10.5)
[2017-03-03 06:26] LABS: ALBUMIN SERUM 2.2 g/dL (3.5-5.0); BILIRUBIN,TOTAL 0.7 mg/dL (0.2-2.0); BUN/CREATININE RATIO 21.25; CALCIUM SERUM 8.1 mg/dL (8.4-10.2); CREATININE SERUM 0.8 mg/dL (0.6-1.4); GLOM FILT RATE Estimated 95.8 mL/min (>60); MAGNESIUM 1.8 mg/dL (1.6-3.0); PHOSPHOROUS 2.3 mg/dL (2.5-4.6); POTASSIUM 4.3 mmol/L (3.5-5.1)
[2017-03-04 06:13] LABS: BUN/CREATININE RATIO 18.75; CALCIUM SERUM 8.2 mg/dL (8.4-10.2); CREATININE SERUM 0.8 mg/dL (0.6-1.4); GLOM FILT RATE Estimated 95.8 mL/min (>60); POTASSIUM 3.3 mmol/L (3.5-5.1)
[2017-03-04] MEDS ORDERED: PREDNISONE PO (11:35)
[2017-03-04] MEDS ORDERED: CEFTIN PO (11:36)
[2017-03-04] MEDS ORDERED: PROAIR HFA8.5 GM INH (11:37)
== END 2017-03-04 12:49 | disposition home or self-care (01) | DRG 871 ==
LOC: CED 13:45 → CEDOF 15:20 → C3A PCU 15:20 → CED 19:41 → CEDOF 19:41 → CICCU3 22:06 → CEDOF 22:06 → C3A PCU 03-02 12:54 → CICCU3 03-02 12:54 → C3A PCU 03-04 12:49
PROVIDERS: Emergency Medicine; Family Medicine Sleep Medicine; Internal Medicine
PROC: B32TYZZ Computerized Tomography (CT Scan) of Left Pulmonary Artery using Other Contrast (ICD-10-PCS; principal; 2017-03-01)
PROC: B32SYZZ Computerized Tomography (CT Scan) of Right Pulmonary Artery using Other Contrast (ICD-10-PCS; 2017-03-01)
DX: A41.9 Sepsis, unspecified organism (principal); R65.21 Severe sepsis with septic shock; J13 Pneumonia due to Streptococcus pneumoniae; C91.10 Chronic lymphocytic leukemia of B-cell type not having achieved remission; R04.2 Hemoptysis; E83.39 Other disorders of phosphorus metabolism; E87.6 Hypokalemia; F17.210 Nicotine dependence, cigarettes, uncomplicated; J44.9 Chronic obstructive pulmonary disease, unspecified; I25.2 Old myocardial infarction
CPT/HCPCS: 36415; 71010; 71275; 74177; 80048; 80053; 80076; 81003; 82553; 82947; 83605; 83690; 83735; 84100; 84484; 85025; 85027; 85610; 85730; 87040; 87186; 93005; 94640; 94760; 96361; 96365; 96366; 96368; 96375; 99285; J0456; J0696; J1170; J1650; J1885; J2543; J2920; J3260; J3370; Q9967

== ENCOUNTER 2017-04-06 02:05 | Emergency (ER) | payer OTHER ==
[~2017-04-06] VITALS: Ht 172.7 cm; Wt 73.0 kg
--- NOTE | ~2017-04-06 | CR72 ---
[facility] A Service of [facility] RADIOLOGY TEXT RESULTS PATIENT: JOIE BEE LOCATION: [facility] : 53 UNIT #: [id number] AGE: [address]: Orlando Tavares MD SEX: M ORDER DR: [id number] [place] [id number] [place], [place] [address] [id number] MR#: [id number] Acc #: [id number] NAME: JOIE BEE : 1955 SEX: M STUDY DATE/TIME: 04/06/2017 3:17 UNIT: [facility] ROOM: STUDY DESCRIPTION: CR Chest Single View Portable Attending Physician: Orlando Tavares M.D. Ordering Physician: Orlando Tavares M.D. Primary Care Physician: Bud Uriarte M.D. MEDICAL IMAGING REPORT This report is preliminary unless electronic signature is present EXAM Chest x-ray 04/06/2017 HISTORY 61-year-old male in the ED complaining of 3-day history of shortness of air, congestion, cough and dizziness. He has a history of chronic lymphocytic leukemia. TECHNIQUE AP portable chest x-ray. FINDINGS The examination shows significant improvement in overall lung expansion and decrease in small right pleural effusions since most recent prior study of 03/03/2017. Mild bibasilar atelectasis remains present. The lungs are otherwise clear. Heart size normal. Central venous port catheter in good position. IMPRESSION 1. Improvement in bibasilar infiltrate and right pleural effusion since 03/03/2017. 2. Mild bibasilar atelectasis. Dictated by... Jamil Augilar M.D. THIS IS AN ELECTRONICALLY VERIFIED REPORT Jamil Aguilar M.D. at 04/06/2017 10:01 PM LLOYDW/marcus TD: 04/06/2017 12:41 JOB #: [id number] [facility] A Service of [facility] RADIOLOGY TEXT RESULTS PATIENT: JOIE BEE [id number] 53 UNIT #: [id number] AGE: [address]: Orlando Tavares MD SEX: M ORDER DR: MEDICAL IMAGING REPORT Page 1 of 1 COPY
--- NOTE | ~2017-04-06 | EKG ---
PATIENT: JOIE BEE UNIT #: [id number] Ventricular Rate: 70 BPM Atrial Rate: 70 BPM P-R Interval: 154 ms QRS Duration: 110 ms Q-T Interval: 402 ms QTC Calculation(Bezet): 434 ms P Orrum: -6 degrees Calculated R Orrum: -37 degrees Calculated T Orrum: 27 degrees Diagnosis Line: Normal sinus rhythm Diagnosis Line: Left axis deviation Diagnosis Line: Abnormal ECG Diagnosis Line: When compared with ECG of 01-MAR-2017 13:52, Diagnosis Line: Premature ventricular complexes are no longer Diagnosis Line: Present Diagnosis Line: Vent. rate has decreased BY 41 BPM Diagnosis Line: Confirmed by JAVON FAIR MD ([id number]) on 04/06/2017 Diagnosis Line: 11:57:08 PM INTERPRETING MD: MARV DAWSON
[~2017-04-06 02:05] MED LIST changes: +CEFTIN PO; +PREDNISONE PO; +PROAIR HFA8.5 GM INH
[2017-04-06] MEDS ORDERED: IMBRUVICA140 MG PO (02:29)
[2017-04-06] MEDS ORDERED: ALBUTEROL17 GM INH (02:29)
[2017-04-06 03:17] LABS: BASOPHIL% 0.3 % (0-2.5); EOSINOPHIL# 0.1 X10e3 (0-0.7); EOSINOPHIL% 0.7 % (0.0-7.0); HEMATOCRIT 30.7 % (38.0-50.0); HEMOGLOBIN 10.1 gm/dL (13.0-16.0); LYMPHOCYTE# 10.1 X10e3 (1.0-3.5); LYMPHOCYTE% 63.7 % (17.0-45.0); MEAN CELL VOLUME 82.6 FL (83-96); MEAN CORPUSCULAR HEMOGLOBIN 27.2 PG (28-34); MEAN CORPUSCULAR HGB CONC 32.9 g/dL (30-36); MEAN PLATELET VOLUME 8.9 FL (6.5-11.5); MONOCYTE% 6.3 % (3.0-12.0); NEUTROPHIL# 4.6 X10e3 (1.5-7.1); PLATELET COUNT 121 X10e3 (140-420); RED BLOOD COUNT 3.72 X10e (3.90-5.60); RED CELL DISTRIBUTION WIDTH 17.9 % (11.0-15.5); WHITE BLOOD COUNT 15.8 X10e3 (4.0-10.5)
[2017-04-06 03:19] LABS: DIFF IND YES
[2017-04-06 03:20] LABS: INR 1.1; PARTIAL THROMBOPLASTIN TIME 33.1 SECONDS (23.5-31.3); PROTHROMBIN TIME (PATIENT) 11.5 SECONDS (10.0-11.7)
[2017-04-06 03:26] LABS: ALBUMIN SERUM 3.4 g/dL (3.5-5.0); BILIRUBIN, DIRECT 0.2 mg/dL (0.0-0.2); BILIRUBIN,INDIRECT 0.4 mg/dL (0.0-0.9); BILIRUBIN,TOTAL 0.6 mg/dL (0.2-2.0); BUN/CREATININE RATIO 14.44; CALCIUM SERUM 8.7 mg/dL (8.4-10.2); CREATININE SERUM 0.9 mg/dL (0.6-1.4); GLOM FILT RATE Estimated 91.2 mL/min (>60); POTASSIUM 3.5 mmol/L (3.5-5.1); PROTEIN TOTAL SERUM 6.1 g/dL (6.0-8.3)
[2017-04-06 03:31] LABS: POC - CKMB <1.0 ng/mL (0.0-7.9); POC - TROPONIN <0.05 ng/mL (<=0.05)
[2017-04-06 03:54] LABS: ANISOCYTOSIS MOD; HYPOCHROMIA SL; MICROCYTOSIS SL; PLATELET ESTIMATE DECREASED (NORMAL); SMUDGE CELLS 9 /100
== END 2017-04-06 04:30 | disposition home or self-care (01) ==
LOC: CED 02:05
PROVIDERS: Emergency Medicine
DX: J44.1 Chronic obstructive pulmonary disease with (acute) exacerbation (principal); J20.9 Acute bronchitis, unspecified; J44.0 Chronic obstructive pulmonary disease with (acute) lower respiratory infection; I10 Essential (primary) hypertension; F17.200 Nicotine dependence, unspecified, uncomplicated
CPT/HCPCS: 36415; 71010; 80048; 80076; 82553; 83605; 84484; 85025; 85610; 85730; 87040; 93005; 94640; 96361; 96374; 99285; J2930